=== PATIENT | female | born 1955 | race Caucasian/White ===

== ENCOUNTER 2025-05-24 09:09 | Day surgery (SDC) | payer MEDICARE, BC ==
[2025-05-22 14:16] VITALS: BMI 30.4
[2025-05-24] MEDS ORDERED: Scopolamine 1 mg/72 hour Patch ONE (10:10)
[2025-05-24] MEDS ORDERED: CEFAZOLIN 2 GM VIAL ONE (11:44)
[2025-05-24] MEDS ORDERED: Lidocaine 1% PF 5 ML VIAL ONE (11:53)
[2025-05-24] MEDS ORDERED: Ondansetron PF 4 MG/2 ML Vial ONE (12:31)
[2025-05-24] MEDS ORDERED: HYDROcodone/Acetaminophen 5/325 mg Tablet ONE (16:01)
== END 2025-05-24 16:40 | disposition home or self-care (01) ==
LOC: CSHSDC 09:09
PROVIDERS: ATTEND Podiatrist Foot & Ankle Surgery
PROC: 0SGL04Z Fusion of Left Tarsometatarsal Joint with Internal Fixation Device, Open Approach (ICD-10-PCS; principal; 2025-05-24)
DX: M19.072 Primary osteoarthritis, left ankle and foot (principal); I10 Essential (primary) hypertension; Z79.899 Other long term (current) drug therapy
CPT/HCPCS: 28740; 73620; C1713 ×4; C1769; C1776; J0665; J1100; J2405; J2704; J3010